=== PATIENT | male | born 1955 | race Caucasian/White ===

== ENCOUNTER 2016-07-31 12:24 | Emergency (ER) | payer OTHER ==
[~2016-07-31] VITALS: Ht 182.9 cm; Wt 103.0 kg
[~2016-07-31 12:24] MED LIST: ALBU6.7H INH; ALBU8I INH; ASPI81TA82 PO; AZIT250T43 PO; CARV3.12 PO
[2016-07-31 12:31] VITALS: BP 118/75; PULSE 65; RESP 18; TEMP 97.6; O2SAT 97
[2016-07-31] MEDS ORDERED: CARV3.12 PO (12:34)
[2016-07-31] MEDS ORDERED: ASPI1TAB69 PO (12:34)
[2016-07-31] MEDS ORDERED: VENTAER INH (12:34)
[2016-07-31] MEDS ORDERED: SODIUM CHLORIDE 0.9% FLUSH 10 ML FLUSH IVF PRN (13:00)
[2016-07-31] MEDS ORDERED: ASPIRIN 81 MG CHEW TAB PO ONE (13:00)
[2016-07-31 13:12] LABS: AUTOMATED NEUTROPHIL # 3.6 TH/MM3 (1.8-7.7); BASOPHIL % 0.6 % (0.0-2.0); EOSINOPHIL # 0.2 TH/MM3 (0-0.4); EOSINOPHIL % 2.7 % (0.0-4.0); HEMATOCRIT 40.1 % (39.0-51.0); HEMO FLAGS DIFF FINAL; LYMPH % 32.2 % (9.0-44.0); MEAN CELL VOLUME 90.5 FL (80.0-100.0); MEAN CORPUSCULAR HEMOGLOBIN 30.3 PG (27.0-34.0); MEAN CORPUSCULAR HGB CONC 33.4 % (32.0-36.0); MONO % 7.9 % (0.0-8.0); NEUT % 56.6 % (16.0-70.0); PLATELET COUNT 177 TH/MM3 (150-450); RED BLOOD COUNT 4.44 MIL/MM3 (4.50-5.90); RED CELL DISTRIBUTION WIDTH 13.1 % (11.6-17.2); WHITE BLOOD COUNT 6.3 TH/MM3 (4.0-11.0)
--- NOTE | 2016-07-31 13:13 | PD ---
HPI Chief Complaint: Chest Pain Time Seen by Provider: 12:45 Travel History International Travel<30 days: No Contact w/Intl Traveler<30days: No Traveled to known affect area: No History of Present Illness HPI Patient is a 61-year-old male with history of hypertension, hyperlipidemia, coronary disease with history of coronary stents to the LAD, who presents to emergency room with complaints of chest pain. Patient reports that he was driving on the road 25 minutes ago when all of a sudden he had pain across his chest. Patient reports that the pain felt like a pressure to his chest, reports that he felt short of breath. Denied diaphoresis with symptoms. Patient reports that symptoms lasted about 5-10 minutes and resolved on its own. Patient reports that this chest pain felt different from when he has had chest pain and ACS in the past. Reports that the pain today was less severe. Patient was concerned as he has a significant coronaries history, reports that he was admitted in the past for "heart issues." Patient was admitted in May 2012 for ACS as well as a non-STEMI. He does see Dr. West in the office and reports that he saw her again half ago and was told that everything was fine. He reports that he is due for a cardiac ultrasound in 6 months. Patient currently chest pain-free at this time. PFSH Past Medical History Asthma: No Heart Rhythm Problems: No Cancer: No Cardiac Catheterization: Yes Cardiovascular Problems: Yes High Cholesterol: No Chest Pain: Yes Congestive Heart Failure: No COPD: Yes Coronary Artery Disease: Yes Diabetes: No Diminished Hearing: No Endocrine: No Gastrointestinal Disorders: No Genitourinary: No Hypertension: Yes Immune Disorder: No Implanted Vascular Access Dvce: Yes Musculoskeletal: Yes Neurologic: No Psychiatric: No Reproductive: No Respiratory: Yes Myocardial Infarction: Yes Sleep Apnea: No Influenza Vaccination: No ?: Not Past Surgical History Abdominal Surgery: Yes (BILAT HERNIA REPAIRS) Body Medical Devices: STENT 2 YEARS AGO, MESH FOR INGUINAL HERNIA Cardiac Surgery: No Coronary Stent: Yes Ear Surgery: No Endocrine Surgery: No Eye Surgery: No Genitourinary Surgery: No Gynecologic Surgery: No Neurologic Surgery: No Oral Surgery: No Thoracic Surgery: No Other Surgery: Yes Social History Alcohol Use: No Tobacco Use: Yes (1.5 ppd) Substance Use: No (35 YEARS AGO COCAINE USE) Allergies-Medications (Allergen,Severity, Reaction): Coded Allergies: No Known Allergies (Verified , 3/21/17) Reported Meds & Prescriptions Reported Meds & Active Scripts Active Reported Ventolin Hfa 18 GM Inh (Albuterol Sulfate) 90 Mcg/Act Aer 1 Puff INH Q4H PRN Aspirin 81 Mg Tabdr 81 Mg PO DAILY Carvedilol 3.125 Mg Tab 3.125 Mg PO BID Review of Systems General / Constitutional: No: Fever Eyes: No: Visual changes HENT: No: Headaches Cardiovascular: Positive: Chest Pain or Discomfort, No: Diaphoresis Respiratory: Positive: Shortness of Breath Gastrointestinal: No: Abdominal Pain Genitourinary: No: Dysuria Musculoskeletal: No: Pain Skin: No Rash Neurologic: No: Weakness Psychiatric: No: Depression Endocrine: No: Polydipsia Hematologic/Lymphatic: No: Easy Bruising Physical Exam Narrative GENERAL: No acute distress, nontoxic SKIN: Warm and dry. HEAD: Atraumatic. Normocephalic. EYES: Pupils equal and round. No scleral icterus. No injection or drainage. ENT: No nasal bleeding or discharge. Mucous membranes pink and moist. NECK: Trachea midline. No JVD. CARDIOVASCULAR: Regular rate and rhythm. No murmur appreciated. RESPIRATORY: No accessory muscle use. Clear to auscultation. Breath sounds equal bilaterally. GASTROINTESTINAL: Abdomen soft, non-tender, nondistended. Hepatic and splenic margins not palpable. MUSCULOSKELETAL: No obvious deformities. No clubbing. No cyanosis. No edema. NEUROLOGICAL: Awake and alert. Normal speech. PSYCHIATRIC: Appropriate mood and affect; insight and judgment normal. Data Data Last Documented VS Vital Signs Date Time Temp Pulse Resp B/P Pulse Ox O2 Delivery O2 Flow Rate FiO2 07/31/16 14:21 67 18 114/67 98 Room Air 07/31/16 12:31 97.6 Orders B-Type Natriuretic Peptide (07/31/16 12:53) Ckmb (Isoenzyme) Profile (07/31/16 12:53) Complete Blood Count With Diff (07/31/16 12:53) Comprehensive Metabolic Panel (07/31/16 12:53) Prothrombin Time / Inr (Pt) (07/31/16 12:53) Act Partial Throm Time (Ptt) (07/31/16 12:53) Troponin I (07/31/16 12:53) Chest, Single Ap (07/31/16 12:53) Ecg Monitoring (07/31/16 12:53) Iv Access Insert/Monitor (07/31/16 12:53) Oximetry (07/31/16 12:53) Aspirin Chew (Aspirin Chew) (07/31/16 13:00) Sodium Chloride 0.9% Flush (Ns Flush) (07/31/16 13:00) Electrocardiogram (07/31/16 12:26) Labs Laboratory Tests Test 07/31/16 13:00 White Blood Count 6.3 TH/MM3 Red Blood Count 4.44 MIL/MM3 Hemoglobin 13.4 GM/DL Hematocrit 40.1 % Mean Corpuscular Volume 90.5 FL Mean Corpuscular Hemoglobin 30.3 PG Mean Corpuscular Hemoglobin 33.4 % Concent Red Cell Distribution Width 13.1 % Platelet Count 177 TH/MM3 Mean Platelet Volume 7.7 FL Neutrophils (%) (Auto) 56.6 % Lymphocytes (%) (Auto) 32.2 % Monocytes (%) (Auto) 7.9 % Eosinophils (%) (Auto) 2.7 % Basophils (%) (Auto) 0.6 % Neutrophils # (Auto) 3.6 TH/MM3 Lymphocytes # (Auto) 2.0 TH/MM3 Monocytes # (Auto) 0.5 TH/MM3 Eosinophils # (Auto) 0.2 TH/MM3 Basophils # (Auto) 0.0 TH/MM3 CBC Comment DIFF FINAL Differential Comment Prothrombin Time 10.5 SEC Prothromb Time International 1.0 RATIO Ratio Activated Partial 27.3 SEC Thromboplast Time Sodium Level 141 MEQ/L Potassium Level 4.1 MEQ/L Chloride Level 107 MEQ/L Carbon Dioxide Level 26.1 MEQ/L Anion Gap 8 MEQ/L Blood Urea Nitrogen 10 MG/DL Creatinine 0.58 MG/DL Estimat Glomerular Filtration 143 ML/MIN Rate Random Glucose 94 MG/DL Calcium Level 8.6 MG/DL Total Bilirubin 0.4 MG/DL Aspartate Amino Transf 15 U/L (AST/SGOT) Alanine Aminotransferase 24 U/L (ALT/SGPT) Alkaline Phosphatase 67 U/L Total Creatine Kinase 82 U/L Troponin I LESS THAN 0.02 NG/ML B-Type Natriuretic Peptide 38 PG/ML Total Protein 6.7 GM/DL Albumin 3.3 GM/DL MDM Medical Decision Making Medical Screen Exam Complete: Yes Emergency Medical Condition: Yes Interpretation(s) EKG at 1226: Normal sinus rhythm at 63bmp, qt/qtc: 430/435, rbbb, no acute changes Differential Diagnosis ACS, arrhythmia, electrolyte abnormality Narrative Course 61-year-old male with history of hypertension, hyperlipidemia, coronary disease , who presents to emergency room with complaints of chest pain. Patient reports that he had chest pain across his chest while driving today, Reports that symptoms lasted 5-10 minutes and resolved on its own. Patient reports that chest and felt a pressure to his chest, patient reports that he is currently chest pain-free at this time. ekg obtained upon presentation to ER patient was placed on cardiac care unit nurse labs as well as ce's and xray of chest ordered Laboratory Tests Test 07/31/16 13:00 White Blood Count 6.3 TH/MM3 (4.0-11.0) Red Blood Count 4.44 MIL/MM3 (4.50-5.90) Hemoglobin 13.4 GM/DL (13.0-17.0) Hematocrit 40.1 % (39.0-51.0) Mean Corpuscular Volume 90.5 FL (80.0-100.0) Mean Corpuscular Hemoglobin 30.3 PG (27.0-34.0) Mean Corpuscular Hemoglobin 33.4 % Concent (32.0-36.0) Red Cell Distribution Width 13.1 % (11.6-17.2) Platelet Count 177 TH/MM3 (150-450) Mean Platelet Volume 7.7 FL (7.0-11.0) Neutrophils (%) (Auto) 56.6 % (16.0-70.0) Lymphocytes (%) (Auto) 32.2 % (9.0-44.0) Monocytes (%) (Auto) 7.9 % (0.0-8.0) Eosinophils (%) (Auto) 2.7 % (0.0-4.0) Basophils (%) (Auto) 0.6 % (0.0-2.0) Neutrophils # (Auto) 3.6 TH/MM3 (1.8-7.7) Lymphocytes # (Auto) 2.0 TH/MM3 (1.0-4.8) Monocytes # (Auto) 0.5 TH/MM3 (0-0.9) Eosinophils # (Auto) 0.2 TH/MM3 (0-0.4) Basophils # (Auto) 0.0 TH/MM3 (0-0.2) CBC Comment DIFF FINAL Differential Comment Prothrombin Time 10.5 SEC (9.8-11.6) Prothromb Time International 1.0 RATIO Ratio Activated Partial 27.3 SEC Thromboplast Time (24.3-30.1) Sodium Level 141 MEQ/L (136-145) Potassium Level 4.1 MEQ/L (3.5-5.1) Chloride Level 107 MEQ/L (98-107) Carbon Dioxide Level 26.1 MEQ/L (21.0-32.0) Anion Gap 8 MEQ/L (5-15) Blood Urea Nitrogen 10 MG/DL (7-18) Creatinine 0.58 MG/DL (0.60-1.30) Estimat Glomerular Filtration 143 ML/MIN Rate (>89) Random Glucose 94 MG/DL (74-106) Calcium Level 8.6 MG/DL (8.5-10.1) Total Bilirubin 0.4 MG/DL (0.2-1.0) Aspartate Amino Transf 15 U/L (15-37) (AST/SGOT) Alanine Aminotransferase 24 U/L (12-78) (ALT/SGPT) Alkaline Phosphatase 67 U/L (45-117) Total Creatine Kinase 82 U/L (39-308) Troponin I LESS THAN 0.02 NG/ML (0.02-0.05) B-Type Natriuretic Peptide 38 PG/ML (0-100) Total Protein 6.7 GM/DL (6.4-8.2) Albumin 3.3 GM/DL (3.4-5.0) Last Impressions Chest X-Ray 07/31/16 1253 Signed Impressions: Service Date/Time: Sunday, July 31, 2016 13:00 - CONCLUSION: 1. Hypoinflation with some atelectatic changes medially above the right hemidiaphragm. 2. No confluent infiltrate or effusion. Tristin Orellana MD I reviewed all the labs and all studies with patient in detail, discussed need for observation for cardiac monitoring and for trending troponins. Patient refuses at this time and wished to be discharged from the hospital. AMA: The risks of leaving against medical advice without further evaluation treatment were discussed with the patient. These risks include cardiac dysfunction, cardiac dysrhythmia, possible heart attack, possible stroke or . The patient indicated understanding of these risks and appeared to have the capacity to make this decision. Patient understands that he may return to the emergency room at any time for evaluation of symptoms. 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 Diagnosis Primary Impression: Chest pain Qualified Code: R07.9 - Chest pain, unspecified type Patient Instructions: General Instructions Additional Instructions: Please follow-up with your garage door service technician as soon as possible Please follow-up with your primary care doctor as soon as possible You may return to the emergency room at any time for evaluation of your symptoms Please return to the emergency room at any time should you have return of chest pain Disposition: 07 AGAINST MEDICAL ADVICE Condition: Serious Cristal Chun DO Jul 31, 2016 13:13
[2016-07-31 13:19] LABS: CHLORIDE 107 MEQ/L (98-107); POTASSIUM 4.1 MEQ/L (3.5-5.1); SODIUM (NA) 141 MEQ/L (136-145)
[2016-07-31 13:20] VITALS: BP 105/68; PULSE 66; RESP 18; O2SAT 98
[2016-07-31 13:23] LABS: APTT (PATIENT) 27.3 SEC (24.3-30.1); PROTHROMBIN TIME - PATIENT 10.5 SEC (9.8-11.6)
[2016-07-31 13:24] LABS: ANION GAP 8 MEQ/L (5-15); BICARBONATE 26.1 MEQ/L (21.0-32.0); BLOOD UREA NITROGEN 10 MG/DL (7-18)
[2016-07-31 13:27] LABS: ALT (GPT) 24 U/L (12-78); AST (GOT) 15 U/L (15-37)
[2016-07-31 13:28] LABS: GLOMERULAR FILTRATION RATE 143 ML/MIN (>89)
[2016-07-31 13:29] LABS: TOTAL BILIRUBIN ADULT 0.4 MG/DL (0.2-1.0)
[2016-07-31 13:30] LABS: ALKALINE PHOSPHATASE 67 U/L (45-117)
[2016-07-31 13:35] LABS: CREATINE KINASE 82 U/L (39-308)
[2016-07-31 14:21] VITALS: BP 114/67; PULSE 67; RESP 18; O2SAT 98
--- NOTE | 2016-07-31 14:24 | RADHPO ---
EXAM DATE/TIME: 07/31/2016 13:00 [facility] COMPARISON: CHEST SINGLE AP, February 18, 2014, 0:19. INDICATIONS : Chest pain. MEDICAL HISTORY : Myocardial infarction. Chronic obstructive pulmonary disease. SURGICAL HISTORY : Stent. ENCOUNTER: Initial ACUITY: 1 day PAIN SCORE: 2/10 LOCATION: Bilateral chest FINDINGS: A single view of the chest demonstrates the lungs to be symmetrically, but under aerated without evid ence of mass, infiltrate or effusion. Minimal atelectatic changes of the right hemidiaphragm. The ca rdiomediastinal contours are unremarkable. Osseous structures are intact. CONCLUSION: 1. Hypoinflation with some atelectatic changes medially above the right hemidiaphragm. 2. No confluent infiltrate or effusion. Tristin Orellana MD on July 31, 2016 at 14:22 Board Certified Radiologist. This report was verified electronically.
--- NOTE | 2016-08-01 11:17 | EKG ---
Date Performed: 07/31/2016 Time Performed: 12:26:30 PTAGE: 61 years EKG: Sinus rhythm Left axis deviation RBBB with left anterior fascicular block Low QRS voltages in limb leads Abnormal ECG PREVIOUS TRACING : 08/15/2005 19.13 DOCTOR: Dany Prieto Interpretating Date/Time 08/01/2016 11:15:47
== END 2016-07-31 15:16 | disposition left against medical advice (07) ==
LOC: PHED 12:24
DX: R07.9 Chest pain, unspecified (principal); E78.5 Hyperlipidemia, unspecified; I10 Essential (primary) hypertension; F17.210 Nicotine dependence, cigarettes, uncomplicated; Z53.29 Procedure and treatment not carried out because of patient's decision for other reasons; Z95.5 Presence of coronary angioplasty implant and graft
CPT/HCPCS: 71010; 80053; 82550; 83880; 84484; 85025; 85610; 85730; 93005